=== PATIENT | female | born 1975 | race American Indian/Alaskan Native ===

== ENCOUNTER 2017-05-19 08:18 | Emergency (ER) | payer MEDICAID, OTHER ==
[2017-05-19 08:40] VITALS: BP 135/80
[2017-05-19] MEDS ORDERED: TYLENOL PO ONE (11:40)
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
== END 2017-05-19 13:12 | disposition home or self-care (01) ==
LOC: ED 08:18
DX: R51 Headache (principal); Z88.2 Allergy status to sulfonamides; V49.49XA Driver injured in collision with other motor vehicles in traffic accident, initial encounter; Y93.89 Activity, other specified; Y99.9 Unspecified external cause status; Y92.410 Unspecified street and highway as the place of occurrence of the external cause
CPT/HCPCS: 70450; 72125